=== PATIENT | male | born 1975 | race Two or more races ===

== ENCOUNTER 2017-02-27 11:50 | Emergency (ER) | payer OTHER ==
[~2017-02-27] VITALS: Ht 177.8 cm; Wt 106.6 kg
[~2017-02-27 11:50] MED LIST: CARI350T PO; CLON2TAB PO; HYDR-548 PO; QUET300T2 PO
--- NOTE | 2017-02-27 12:00 | NUR ---
CALLED TO TRIAGE, NO ANSWER
[2017-02-27 12:10] VITALS: BP 127/80
== END 2017-02-27 12:29 | disposition home or self-care (01) ==
LOC: ER 11:51
DX: M25.562 Pain in left knee (principal); Z76.5 Malingerer [conscious simulation]; F20.9 Schizophrenia, unspecified; Z88.6 Allergy status to analgesic agent
CPT/HCPCS: 99281; A4606; Z7610; Z7502

== ENCOUNTER 2017-05-14 17:34 | Emergency (ER) | payer OTHER ==
[~2017-05-14] VITALS: Ht 180.3 cm; Wt 113.4 kg
[2017-05-14 17:38] VITALS: BP 166/103
== END 2017-05-14 18:05 | disposition home or self-care (01) ==
LOC: ER 17:36
DX: M79.672 Pain in left foot (principal); M79.671 Pain in right foot; M25.561 Pain in right knee; M10.9 Gout, unspecified; F20.9 Schizophrenia, unspecified; Z88.6 Allergy status to analgesic agent
CPT/HCPCS: A4606; Z7502; Z7610